=== PATIENT | female | born 1945 | race Caucasian/White ===

== ENCOUNTER 2017-07-05 18:32 | Emergency (ER) | payer OTHER, MEDICARE ==
[2017-07-05 19:08] LABS: ABSOLUTE BASOPHIL COUNT 0 /CUMM (0.0-0.2); ABSOLUTE EOSINOPHIL COUNT 0.1 /CUMM (0.0-0.7); ABSOLUTE GRANULOCYTE CT 4.1 /CUMM (1.4-6.5); ABSOLUTE LYMPH COUNT 2.4 /CUMM (1.2-3.4); ABSOLUTE MONOCYTE COUNT 0.5 /CUMM (0.10-0.60); BASOPHIL % 0.6 % (0.0-2.0); EOSINOPHIL % 1.7 % (0-5); GRANULOCYTE % 57.9 % (42.2-75.2); HEMATOCRIT 43.9 % (37-47); MEAN CORPUSCULAR HGB 31.8 PG (27.0-31.0); MEAN CORPUSCULAR HGB CONC 33.7 G/DL (33.0-37.0); MEAN CORPUSCULAR VOLUME 94.2 FL (81.0-99.0); MEAN PLATELET VOLUME 7.4 FL (7.4-10.4); PLATELET COUNT 380 /CUMM (130-400); RBC DISTRIBUTION WIDTH 12.7 % (11.5-14.5); RED BLOOD CELL CT 4.66 /CUMM (4.20-5.40); WHITE BLOOD CELL COUNT 7.2 /CUMM (4.8-10.8)
--- NOTE | 2017-07-05 20:17 | ED GI/GU/ABDOMINAL COMPLAINT ---
History of Present Illness General Chief Complaint: Abdominal Pain/Flank Pain Stated Complaint: LLQ PAIN Source: patient, family Exam Limitations: no limitations Vital Signs & Intake/Output Vital Signs & Intake/Output Vital Signs Date Time Temp Pulse Resp B/P B/P Pulse O2 O2 Flow FiO2 Mean Ox Delivery Rate 07/053 97.7 75 18 110/58 97 Room Air 07/05 1902 97.8 95 18 132/83 97 Allergies Coded Allergies: No Known Allergies (07/05/17) Reconcile Medications Meloxicam (Mobic) 15 MG TABLET 1 TAB PO DAILY PRN pain Triage Note: PT TO TRIAGE WITH LLQ PAIN SINCE THIS MORNING AFTER HAVING BREAKFAST. PT STATES PAIN IS BURNING AND 7/10, DENIES FEVERS, DENIES N/V/D. STATES THOUGHT HER STOOL IS USUALLY LOOSE. Triage Nurses Notes Reviewed? yes ? N Is pt currently ? No Onset: Gradual Duration: hour(s): Timing: single episode today Quality/Severity: severe Severity Numbers: 9 Location: left lower quadrant Radiation: BACK HPI: 71yo female with hx of microscopic colitis presents to ED complaining of abdominal pain beginning this AM. Patient states the pain began after breakfast , described as gradually worsening. Pain currently 9/10, located in left lower quadrant with radiation toward her back. Patient reports loose stools at baseline however noticed mild constipation today. Patient reports nausea earlier today however no vomiting. She currently does not feel nauseous. Patient reports feeling sweats and chills today. Patient denies hematochezia, melena, dysuria, urinary frequency, sick contact. (Eliz Jain) Past History Travel History Traveled to [place] past 21 day No Medical History Any Pertinent Medical History? see below for history Neurological: NONE EENT: NONE Cardiovascular: NONE Respiratory: NONE Gastrointestinal: microscopic colitis Hepatic: NONE Renal: NONE Musculoskeletal: NONE Psychiatric: NONE Endocrine: NONE Blood Disorders: NONE Cancer(s): NONE Surgical History Surgical History: cholecystectomy, hysterectomy Psychosocial History What is your primary language Syrian Tobacco Use: Never used Family History Hx Contributory? No (Eliz Jain) Review of Systems Review of Systems Constitutional: Reports: see HPI. EENTM: Reports: no symptoms. Respiratory: Reports: no symptoms. Cardiovascular: Reports: no symptoms. GI: Reports: no symptoms. Genitourinary: Reports: see HPI. Musculoskeletal: Reports: no symptoms. Skin: Reports: no symptoms. Neurological/Psychological: Reports: no symptoms. Hematologic/Endocrine: Reports: no symptoms. Immunologic/Allergic: Reports: no symptoms. All Other Systems: Reviewed and Negative (Blanquita CRONIN,Eliz Alcantar) Physical Exam Physical Exam General Appearance: well developed/nourished, no apparent distress, alert, awake Head: atraumatic, normal appearance Eyes: Bilateral: normal appearance. Ears, Nose, Throat, Mouth: hearing grossly normal Neck: normal inspection, supple, full range of motion Respiratory: normal breath sounds, no respiratory distress, lungs clear Cardiovascular: regular rate/rhythm Gastrointestinal: normal bowel sounds, soft, no organomegaly, LLQ tenderness with gaurding Back: normal inspection, normal range of motion, no CVA tenderness Extremities: normal range of motion Neurologic/Psych: awake, alert, oriented x 3 Skin: intact, normal color, warm/dry Core Measures ACS in differential dx? No Sepsis Present: No Sepsis Focused Exam Completed? No (Eliz Jain) Progress Differential Diagnosis: appendicitis, bowel obstruction, diverticulitis, gastritis, hernia, inflamm bowel dis, kidney stone, UTI/pyelo Plan of Care: Orders Procedure Date/time Status URINALYSIS 07/05 2033 Complete TROPONIN LEVEL 07/05 1846 Complete LIPASE 07/05 1846 Complete COMPREHENSIVE METABOLIC PANEL 07/05 1846 Complete CBC WITHOUT DIFFERENTIAL 07/05 1846 Complete EKG 07/05 183 Active Laboratory Tests 07/05/172049: Urine Color YEL, Urine Clarity CLEAR, Urine pH 6.0, Ur Specific [place] 1.025, Urine Protein NEG, Urine Ketones TRACE H, Urine Nitrite NEG, Urine Bilirubin NEG, Urine Urobilinogen 0.2, Ur Leukocyte Esterase TRACE H, Ur Microscopic SEDIMENT EXAMINED, Urine RBC 3-5, Urine WBC 1-3 H, Ur Epithelial Cells FEW, Urine Hemoglobin LARGE H, Urine Glucose NEG 07/05/17 185: Anion Gap 12, Estimated GFR > 60, BUN/Creatinine Ratio 22.9, Glucose 94, Calcium 9.8, Total Bilirubin 0.9, AST 34, ALT 32, Alkaline Phosphatase 80, Troponin I < 0.01, Total Protein 7.8, Albumin 4.8, Globulin 3.0, Albumin/Globulin Ratio 1.6, Lipase 103, CBC w Diff NO MAN DIFF REQ, RBC 4.66, MCV 94.2, MCH 31.8 H, MCHC 33.7, RDW 12.7, MPV 7.4, Gran % 57.9, Lymphocytes % 33.1, Monocytes % 6.7, Eosinophils % 1.7, Basophils % 0.6, Absolute Granulocytes 4.1, Absolute Lymphocytes 2.4, Absolute Monocytes 0.5, Absolute Eosinophils 0.1, Absolute Basophils 0 Patient's labs are WNL, no acute abnormality. She has significant LLQ tenderness on physical exam. Will obtain CT scan for further evaluation of intra abdominal pathology. CT scan shows no acute abnormality. Patient instructed to follow-up with her GI doctor, Dr. Sheppard, regarding her abdominal pain. Patient reports improvement in her pain following IV Toradol and acetaminophen. Patient instructed to begin meloxicam regarding her pain. Was also recommended she discontinue Imodium while she has persisting constipation. Patient in no acute distress, vital signs are stable. The patient agrees with the plan of care. She was given strict return precautions. Diagnostic Imaging: Viewed by Me: CT Scan. Discussed w/RAD: CT Scan. Radiology Impression: PATIENT: ANGELITA MEADE PRESENT AGE: 71 PATIENT ACCOUNT NO: [id number] : 44 LOCATION: [facility] ORDERING PHYSICIAN: Eliz CRONIN SERVICE DATE: 07/05/17 EXAM TYPE: CAT - CT ABD & PELVIS W IV CONTRAST EXAMINATION: CT ABDOMEN AND PELVIS WITH CONTRAST CLINICAL INFORMATION: Left lower quadrant abdominal pain. Nausea. COMPARISON: None TECHNIQUE: Multidetector volumetric imaging was performed of the abdomen and pelvis following IV administration of 90 mL of Optiray 320 intravenous contrast. Sagittal and coronal reformatted images were obtained on the technologist's workstation. DLP: 290.8 mGy-cm FINDINGS: LUNG BASES: The visualized lung bases are unremarkable. LIVER, GALLBLADDER, AND BILIARY TREE: The liver is normal in size, shape, and attenuation. No focal hepatic lesion or biliary ductal dilatation is present. Status post cholecystectomy. Extrahepatic CBD measures 8 mm. PANCREAS: Unremarkable. SPLEEN: Unremarkable. ADRENAL GLANDS: Unremarkable. KIDNEYS AND URETERS: The kidneys are normal in size, shape, and attenuation. No hydronephrosis, hydroureter, or calculi seen. No perinephric stranding. BLADDER: Unremarkable. GASTROINTESTINAL TRACT: The small and large bowel are unremarkable. There is no diverticula. No bowel wall thickening or edema. No bowel obstruction. The appendix is not identified. No inflammation of the mesentery. ABDOMINAL WALL: No significant hernia is appreciated. LYMPH NODES : Normal. VASCULAR: There is atherosclerotic vascular wall calcifications of aorta and iliac vessels without aneurysm. PELVIC VISCERA: Unremarkable. OSSEOUS STRUCTURES: Degenerative spondylosis of the spine with disc height narrowing and endplate spurring and vacuum disc phenomenon. IMPRESSION: No acute change of the abdomen or pelvis. DICTATED BY: Romeo Guzman MD DATE/TIME DICTATED:07/05/172142 SPLICING TECHNICIAN:YVONNE DATE/TIME TRANSCRIBED:07/05/172142 CONFIDENTIAL, DO NOT COPY WITHOUT APPROPRIATE AUTHORIZATION. <Electronically signed in Other Vendor System> SIGNED BY: Romeo Guzman MD 07/05/172155 Initial ED EKG: sinus rhythm @69bpm, nonspecific ST changes Prior EKG: unchanged (05/15/04) (Blanquita CRONIN,Eliz Alcantar) Departure Departure Disposition: HOME OR SELF CARE Condition: Stable Clinical Impression Primary Impression: Abdominal pain Qualifiers: Abdominal location: left lower quadrant Qualified Code: R10.32 - Left lower quadrant pain Referrals: Leander SLOAN,Ravi (PCP/Family) Additional Instructions: Take meloxicam as prescribed as needed for pain. Take this medication with a meal. He may take this medication with Tylenol 650 mg every 6 hours as needed for pain. Discontinue Imodium while you are having constipation symptoms, if you develop diarrhea you may begin Imodium again. Follow-up with Dr. Sheppard regarding today's visit to the emergency department. Ask him about initiation of a possible probiotic or fiber supplement. If you develop any worsening symptoms such as increasing abdominal pain, fevers, vomiting, other concerns please return to the emergency department for further evaluation. Please note that there might be incidental findings in your evaluation that are unrelated to the current emergency department visit. Please notify your primary care doctor about this emergency department visit in order to obtain and review all of the testing performed so that these incidental findings can be monitored as needed. If you had an x-ray performed, please understand that some fractures may not be seen on the initial set of x-rays. If your symptoms persist you might need a repeat set of x-rays to check for such a fracture. If you had a laceration evaluated, please understand that foreign bodies such as glass or wood may not be visible to the naked eye or on plain x-rays. If the wound becomes red, swollen, increasingly more painful or if there is any drainage from the wound, please have it reevaluated by a physician for the possibility of a retained foreign body. If you're unable to follow up as outlined in the discharge instructions please return to the emergency department. Thank you for choosing the [facility] Emergency Department for your care. It was a pleasure to serve you today. Departure Forms: Customer Survey General Discharge Information Prescriptions: Current Visit Scripts Meloxicam (Mobic) 1 TAB PO DAILY PRN pain #30 TAB (Blanquita CRONIN,Eliz Alcantar) PA/PUBLIC RELATIONS ACCOUNT SUPERVISOR Co-Sign Statement Statement: ED Attending supervision documentation- [] I saw and evaluated the patient. I have also reviewed all the pertinent lab results and diagnostic results. I agree with the findings and the plan of care as documented in the PA's/PUBLIC RELATIONS ACCOUNT SUPERVISOR's documentation. [x] I have reviewed the ED Record and agree with the PA's/PUBLIC RELATIONS ACCOUNT SUPERVISOR's documentation. [] Additions or exceptions (if any) to the PAs/PUBLIC RELATIONS ACCOUNT SUPERVISOR's note and plan are summarized below: [] (Nereida SLOAN,Adam Quarles)
--- NOTE | 2017-07-05 21:56 | CT SCAN REPORT ---
EXAMINATION: CT ABDOMEN AND PELVIS WITH CONTRAST CLINICAL INFORMATION: Left lower quadrant abdominal pain. Nausea. COMPARISON: None TECHNIQUE: Multidetector volumetric imaging was performed of the abdomen and pelvis following IV administration of 90 mL of Optiray 320 intravenous contrast. Sagittal and coronal reformatted images were obtained on the technologist's workstation. DLP: 290.8 mGy-cm FINDINGS: LUNG BASES: The visualized lung bases are unremarkable. LIVER, GALLBLADDER, AND BILIARY TREE: The liver is normal in size, shape, and attenuation. No focal hepatic lesion or biliary ductal dilatation is present. Status post cholecystectomy. Extrahepatic CBD measures 8 mm. PANCREAS: Unremarkable. SPLEEN: Unremarkable. ADRENAL GLANDS: Unremarkable. KIDNEYS AND URETERS: The kidneys are normal in size, shape, and attenuation. No hydronephrosis, hydroureter, or calculi seen. No perinephric stranding. BLADDER: Unremarkable. GASTROINTESTINAL TRACT: The small and large bowel are unremarkable. There is no diverticula. No bowel wall thickening or edema. No bowel obstruction. The appendix is not identified. No inflammation of the mesentery. ABDOMINAL WALL: No significant hernia is appreciated. LYMPH NODES: Normal. VASCULAR: There is atherosclerotic vascular wall calcifications of aorta and iliac vessels without aneurysm. PELVIC VISCERA: Unremarkable. OSSEOUS STRUCTURES: Degenerative spondylosis of the spine with disc height narrowing and endplate spurring and vacuum disc phenomenon. IMPRESSION: No acute change of the abdomen or pelvis.
[2017-07-05 22:23] VITALS: BP 110/58
[2017-07-05] MEDS ORDERED: MOBIC15 M1 PO (22:45)
== END 2017-07-05 22:50 ==
LOC: ERH 18:32
PROVIDERS: Internal Medicine
DX: R10.32 Left lower quadrant pain (principal)
CPT/HCPCS: 74177; 81001; 93005; 93010; 96361; 96365; 96375; J0131; J1885